=== PATIENT | female | born 1990 | race Caucasian/White ===

== ENCOUNTER 2019-06-09 23:17 | Emergency (ER) | payer OTHER ==
[2019-06-09 23:29] VITALS: TEMP 97.8
[2019-06-09] MEDS ORDERED: KETOROLAC 30 MG/ML 1 ML VIAL IVP STA (23:44)
[2019-06-09] MEDS ORDERED: SODIUM CHLORIDE 0.9% 1,000 ML IV STA (23:44)
[2019-06-09] MEDS ORDERED: ONDANSETRON 4 MG/2 ML VIAL IVP STA (23:44)
[2019-06-09] MEDS ORDERED: HYDROmorphone 0.5 MG/0.5 ML SYRINGE IVP STA (23:44)
[2019-06-10 01:21] LABS: Basophils # (A) 0.1 k/uL (0-0.2); Basophils % (A) 1 %; Eosinophils # (A) 0.2 k/uL (0-0.7); Eosinophils % (A) 2 %; HCT 38.6 % (34.0-46.0); HGB 12.9 gm/dL (11.4-16.0); Lymphocytes # (A) 2.5 k/uL (1.0-4.8); Lymphocytes % (A) 25 %; MCH 29.6 pg (25.0-35.0); MCHC 33.4 g/dL (31.0-37.0); MCV 88.7 fL (80.0-100.0); Mean Platelet Volume 6.6; Monocytes # (A) 0.5 k/uL (0-1.0); Monocytes % (A) 5 %; Neutrophils # (A) 6.9 k/uL (1.3-7.7); Neutrophils % (A) 67 %; Platelet Count 373 k/uL (150-450); RBC 4.35 m/uL (3.80-5.40); RDW 12.5 % (11.5-15.5); WBC 10.3 k/uL (3.8-10.6)
[2019-06-10 01:29] LABS: ALT 12 U/L (9-52); AST 11 U/L (14-36); African American GFR (CKD) >90 (>60 ml/min/1.73 sqM); Albumin 4.1 g/dL (3.5-5.0); Alkaline Phosphatase 49 U/L (38-126); Amylase 57 U/L (30-110); Anion Gap 9 mmol/L; Blood Urea Nitrogen 10 mg/dL (7-17); Calcium 9.1 mg/dL (8.4-10.2); Carbon Dioxide 23 mmol/L (22-30); Chloride 107 mmol/L (98-107); Glucose 106 mg/dL (74-99); Potassium 4.2 mmol/L (3.5-5.1); Sodium 139 mmol/L (137-145); Total Bilirubin 0.4 mg/dL (0.2-1.3); Total Protein 6.8 g/dL (6.3-8.2)
[2019-06-10 01:37] LABS: Amorphous Sediment,Urine Occasional /hpf; Appearance,Urine Cloudy (Clear); Bacteria,Urine Occasional /hpf; Bilirubin,Urine Negative (Negative); Blood,Urine Moderate (Negative); Color,Urine Yellow; Glucose,Urine (UA) Negative (Negative); Ketones,Urine Negative (Negative); Leukocyte Esterase,Urine Negative (Negative); Mucus,Urine Few /hpf; Nitrite,Urine Negative (Negative); Protein,Urine Trace (Negative); RBC,Urine >182 /hpf (0-5); Specific Gravity,Urine 1.016 (1.001-1.035); Squamous Epithelial Cell,Urine 13 /hpf (0-4); Urobilinogen,Urine <2.0 mg/dL (<2.0); WBC,Urine 4 /hpf (0-5)
--- NOTE | 2019-06-10 01:58 | XR ---
INDICATION: Abdominal pain COMPARISON: None FINDINGS: AP upright views of the abdomen are submitted for interpretation. The bowel gas pattern is nonobstructive. There is no evidence of bowel distention or fluid levels. There is no evidence of free air. A few punctate calcifications in the right pelvis suggest phleboliths. Regional skeleton is intact. IMPRESSION: Nonobstructive bowel gas pattern.
[2019-06-10] MEDS ORDERED: HYDROmorphone 1 MG/ML 1 ML SYRINGE IVP STA (02:21)
[2019-06-10] MEDS ORDERED: ONDANSETRON 4 MG/2 ML VIAL IVP STA (02:21)
[2019-06-10] MEDS ORDERED: SODIUM CHLORIDE 0.9% 500 ML 500 ML IV ONE (02:21)
[2019-06-10] MEDS ORDERED: TAMSULOSIN 0.4 MG CAP.ER.24H PO STA (02:21)
[2019-06-10] MEDS ORDERED: PHENAZOPYRIDINE 200 MG TAB PO STA (02:28)
--- NOTE | 2019-06-10 02:31 | ED ---
Abdominal Pain HPI - General Chief Complaint: Abdominal Pain Stated Complaint: poss kidney stone Time Seen by Provider: 06/09/19 23:30 Source: patient Mode of arrival: wheelchair Limitations: no limitations - History of Present Illness Initial Comments: 29-year-old female patient presents to the emergency department today for evaluation of right flank pain and suprapubic pain. Patient states his been going on since around 3 PM this afternoon. Patient states that she has had urinary symptoms including dysuria and suprapubic cramping for the last week. Patient states that she does have history of kidney stones and this pain feels similar. States she is nauseated and has vomited several times since onset of pain today. She denies any fever or chills. Denies any obvious hematuria. States she was having some issues with urinary retention this evening. Patient states she's had tubal ligation in the past and denies chance of . Patient denies any recent rash, shortness breath, chest pain, diarrhea, constipation, numbness, tingling, dizziness, weakness, headache, visual changes, or any other complaints. - Related Data Previous Rx's Medication Instructions Recorded Amoxicillin 500 mg PO Q12HR 7 Days cap 09/12/16 HYDROcodone/APAP 5-325MG [[place] 1 tab PO Q6HR #16 tab 09/12/16 5-325] Ondansetron Odt [Zofran Odt] 4 mg PO Q12HR 8 Days tab 09/12/16 Hydrocodone/Acetaminophen [[place] 1 tab PO Q6HR PRN #12 tab 06/10/19 5-325] Ibuprofen [Motrin] 600 mg PO Q8HR PRN #30 tab 06/10/19 Ondansetron [Zofran ODT] 4 mg PO Q8HR PRN #10 tab 06/10/19 Tamsulosin HCl [Flomax] 0.4 mg PO DAILY #7 cap 06/10/19 Allergies Allergy/AdvReac Type Severity Reaction Status Date / Time latex Allergy Rash/Hives Verified 06/09/19 23:29 Review of Systems ROS Statement: Those systems with pertinent positive or pertinent negative responses have been documented in the HPI. ROS Other: All systems not noted in ROS Statement are negative. Past Medical History Additional Past Medical History / Comment(s): kidney stone, History of Any Multi-Drug Resistant Organisms: None Reported Past Surgical History: Tubal Ligation Additional Past Surgical History / Comment(s): lithotripsy, urethral stent, Past Psychological History: No Psychological Hx Reported Smoking Status: Current some day smoker Past Alcohol Use History: None Reported Past Drug Use History: None Reported General Exam Limitations: no limitations General appearance: alert, in no apparent distress, other (This is a well- developed, well-nourished adult female patient in mild distress related to pain. Vital signs upon presentation are temperature 97.8F, pulse 82, respirations 17, blood pressure 120/65, pulse ox 100% on room air.) Eye exam: Present: normal appearance, PERRL, EOMI. Absent: scleral icterus, conjunctival injection, periorbital swelling ENT exam: Present: normal exam, normal oropharynx, mucous membranes moist Respiratory exam: Present: normal lung sounds bilaterally. Absent: respiratory distress, wheezes, rales, rhonchi, stridor Cardiovascular Exam: Present: regular rate, normal rhythm, normal heart sounds. Absent: systolic murmur, diastolic murmur, rubs, gallop, clicks GI/Abdominal exam: Present: soft, tenderness (Suprapubic tenderness), normal bowel sounds. Absent: distended, guarding, rebound, rigid Back exam: Present: normal inspection, CVA tenderness (R). Absent: CVA tenderness (L) Neurological exam: Present: alert, oriented X3, CN II-XII intact Psychiatric exam: Present: normal affect, normal mood Skin exam: Present: warm, dry, intact, normal color. Absent: rash Course Vital Signs 06/09/19 23:24 Temperature 97.8 F Pulse Rate 82 Respiratory 17 Rate Blood Pressure 120/65 O2 Sat by Pulse 100 Oximetry Medical Decision Making - Medical Decision Making 29-year-old female patient presented to the emergency department today for evaluation of right flank pain and suprapubic abdominal pain. Physical examination did reveal right CVA tenderness and mild suprapubic abdominal tenderness. Labs reviewed and revealed normal white blood cell, urinalysis showed a cloudy appearance with trace protein. Moderate blood, greater than 182 red blood cells, 13 squamous epithelial cells, occasional amorphous sediment, occasional bacteria, and few mucus. HCG negative. X-ray showed calcifications in the pelvis possible phleboliths. Patient does have history of kidney stone, symptoms and urine findings are consistent with kidney stone. She'll be discharged with prescriptions for pain medication, nausea control, and Flomax. She is instructed to follow-up with urologist for further evaluation as soon as possible. Return parameters were discussed in detail. She verbalizes understanding and agrees with this plan. - Lab Data Result diagrams: 06/10/19 00:47 06/10/19 00:47 Lab Results 06/10/19 06/10/19 06/10/19 Range/Units 00:41 00:41 00:47 WBC (3.8-10.6) k/uL RBC (3.80-5.40) m/uL Hgb (11.4-16.0) gm/dL Hct (34.0-46.0) % MCV (80.0-100.0) fL MCH (25.0-35.0) pg MCHC (31.0-37.0) g/dL RDW (11.5-15.5) % Plt Count (150-450) k/uL Neutrophils % % Lymphocytes % % Monocytes % % Eosinophils % % Basophils % % Neutrophils # (1.3-7.7) k/uL Lymphocytes # (1.0-4.8) k/uL Monocytes # (0-1.0) k/uL Eosinophils # (0-0.7) k/uL Basophils # (0-0.2) k/uL Sodium 139 (137-145) mmol/L Potassium 4.2 (3.5-5.1) mmol/L Chloride 107 (98-107) mmol/L Carbon Dioxide 23 (22-30) mmol/L Anion Gap 9 mmol/L BUN 10 (7-17) mg/dL Creatinine 0.60 (0.52-1.04) mg/dL Est GFR (CKD-EPI)AfAm >90 (>60 ml/min/1.73 sqM) Est GFR (CKD-EPI)NonAf >90 (>60 ml/min/1.73 sqM) Glucose 106 H (74-99) mg/dL Calcium 9.1 (8.4-10.2) mg/dL Total Bilirubin 0.4 (0.2-1.3) mg/dL AST 11 L (14-36) U/L ALT 12 (9-52) U/L Alkaline Phosphatase 49 (38-126) U/L Total Protein 6.8 (6.3-8.2) g/dL Albumin 4.1 (3.5-5.0) g/dL Amylase 57 (30-110) U/L Lipase 205 (23-300) U/L Urine Color Yellow Urine Appearance Cloudy H (Clear) Urine pH 6.0 (5.0-8.0) Ur Specific [place] 1.016 (1.001-1.035) Urine Protein Trace H (Negative) Urine Glucose (UA) Negative (Negative) Urine Ketones Negative (Negative) Urine Blood Moderate H (Negative) Urine Nitrite Negative (Negative) Urine Bilirubin Negative (Negative) Urine Urobilinogen <2.0 (<2.0) mg/dL Ur Leukocyte Esterase Negative (Negative) Urine RBC >182 H (0-5) /hpf Urine WBC 4 (0-5) /hpf Ur Squamous Epith Cells 13 H (0-4) /hpf Amorphous Sediment Occasional H (None) /hpf Urine Bacteria Occasional H (None) /hpf Urine Mucus Few H (None) /hpf Urine HCG, Qual Not Detected (Not Detectd) 06/10/19 Range/Units 00:47 WBC 10.3 (3.8-10.6) k/uL RBC 4.35 (3.80-5.40) m/uL Hgb 12.9 (11.4-16.0) gm/dL Hct 38.6 (34.0-46.0) % MCV 88.7 (80.0-100.0) fL MCH 29.6 (25.0-35.0) pg MCHC 33.4 (31.0-37.0) g/dL RDW 12.5 (11.5-15.5) % Plt Count 373 (150-450) k/uL Neutrophils % 67 % Lymphocytes % 25 % Monocytes % 5 % Eosinophils % 2 % Basophils % 1 % Neutrophils # 6.9 (1.3-7.7) k/uL Lymphocytes # 2.5 (1.0-4.8) k/uL Monocytes # 0.5 (0-1.0) k/uL Eosinophils # 0.2 (0-0.7) k/uL Basophils # 0.1 (0-0.2) k/uL Sodium (137-145) mmol/L Potassium (3.5-5.1) mmol/L Chloride (98-107) mmol/L Carbon Dioxide (22-30) mmol/L Anion Gap mmol/L BUN (7-17) mg/dL Creatinine (0.52-1.04) mg/dL Est GFR (CKD-EPI)AfAm (>60 ml/min/1.73 sqM) Est GFR (CKD-EPI)NonAf (>60 ml/min/1.73 sqM) Glucose (74-99) mg/dL Calcium (8.4-10.2) mg/dL Total Bilirubin (0.2-1.3) mg/dL AST (14-36) U/L ALT (9-52) U/L Alkaline Phosphatase (38-126) U/L Total Protein (6.3-8.2) g/dL Albumin (3.5-5.0) g/dL Amylase (30-110) U/L Lipase (23-300) U/L Urine Color Urine Appearance (Clear) Urine pH (5.0-8.0) Ur Specific [place] (1.001-1.035) Urine Protein (Negative) Urine Glucose (UA) (Negative) Urine Ketones (Negative) Urine Blood (Negative) Urine Nitrite (Negative) Urine Bilirubin (Negative) Urine Urobilinogen (<2.0) mg/dL Ur Leukocyte Esterase (Negative) Urine RBC (0-5) /hpf Urine WBC (0-5) /hpf Ur Squamous Epith Cells (0-4) /hpf Amorphous Sediment (None) /hpf Urine Bacteria (None) /hpf Urine Mucus (None) /hpf Urine HCG, Qual (Not Detectd) - Radiology Data Radiology results: report reviewed, image reviewed KUB x-ray of the abdomen is obtained. Report was reviewed in its entirety. Impression by Dr. Kline shows nonobstructive bowel gas pattern. Disposition Clinical Impression: Kidney stone Disposition: HOME SELF-CARE Condition: Good Instructions (If sedation given, give patient instructions): Kidney Stones (ED), How to Strain Your Urine (ED) Additional Instructions: Increase fluids, especially water. Take medications as directed. Follow-up with urologist for recheck as soon as possible. Return to the emergency department immediately for any new, worsening, or concerning symptoms. Prescriptions: Tamsulosin HCl [Flomax] 0.4 mg PO DAILY #7 cap Ibuprofen [Motrin] 600 mg PO Q8HR PRN #30 tab PRN Reason: Pain Hydrocodone/Acetaminophen [[place] 5-325] 1 tab PO Q6HR PRN #12 tab PRN Reason: Pain Ondansetron [Zofran ODT] 4 mg PO Q8HR PRN #10 tab PRN Reason: Nausea Is patient prescribed a controlled substance at d/c from ED?: Yes When asked, does pt state using other controlled substances?: No If prescribed controlled substance>3 days was MAPS reviewed?: Prescribed <3 Days If opioid is for acute pain is fill amount 7 days or less?: Yes If Rx opioid, was Start Talking consent form obtained?: Yes Referrals: Brittany Chamberlain MD [Primary Care Provider] - 1-2 days Onur Dexter MD [STAFF PHYSICIAN] - 1-2 days Time of Disposition: 03:21
[2019-06-10] MEDS ORDERED: ONDANSETRON 4 MG ODT STARTER PACK 2 TAB BTL PO STA (03:19)
[2019-06-10] MEDS ORDERED: ACET/COD 300 MG/30 MG STARTER PACK 6 TAB BTL PO STA (03:19)
[2019-06-10 04:19] VITALS: BP 122/91; PULSE 64; RESP 18
== END 2019-06-10 04:20 | disposition home or self-care (01) ==
LOC: EC 23:17
DX: N20.0 Calculus of kidney (principal); F17.200 Nicotine dependence, unspecified, uncomplicated; Z91.040 Latex allergy status; Z96.0 Presence of urogenital implants; Z98.51 Tubal ligation status; Z98.890 Other specified postprocedural states
CPT/HCPCS: 36415; 80053; 82150; 83690; 85025; 81001; 81025; 74018; 99284; 96374; 96375 ×2; 96376 ×2; 96361 ×2; J2405; J1885; J1170 ×2; S0119

== ENCOUNTER → 2019-08-13 | Outpatient (CLI) | payer OTHER ==
--- NOTE | 2019-08-13 12:11 | XR ---
EXAMINATION TYPE: XR abdomen 1V DATE OF EXAM: 08/13/2019 COMPARISON: 06/10/2019 HISTORY: Flank pain and history of kidney stones TECHNIQUE: One view abdominal series FINDINGS: The osseous structures are intact. The bowel gas pattern is nonspecific. No definite suspicious calc ifications visualized overlying the kidneys. Tiny calcifications in the right hemipelvis are noted an d too small to characterize. IMPRESSION: 1. Nonspecific abdomen. No definite renal calculi. There are punctate calcifications along the right pelvic sidewall which are too small to characterize. Correlate with noncontrast CT as clinically war ranted.
== END | disposition home or self-care (01) ==
LOC: RADXRMAIN 11:55
PROVIDERS: ATTEND Urology
DX: N28.89 Other specified disorders of kidney and ureter (principal)
CPT/HCPCS: 74018

== ENCOUNTER 2019-08-17 10:57 | Day surgery (SDC) | payer OTHER ==
[2019-08-15 11:01] VITALS: BMI 19.9
--- NOTE | 2019-08-16 22:14 | P.HPIHPCON ---
History of Present Illness H&P Date: 08/17/19 Chief Complaint: bilateral flank pain Ms Reese is 29 yo female with intractable flank pain that is associated with N/V. She underwent a CT which showed 3mm renal stones on the left and possible 2mm ureteral stone vs Phlebilith on the right. Patient was having severe pain on presentation. We discussed with her given the finding of bilateral stones on CT we will proceed with cystoscopy bilateral retrograde pyelogram, possible ureteroscopy with holmium laser lithotripsy and stone basketting. I discussed with her the risk on surgery including bleeding, infection and injury to ureter. I also discussed risk of anesthesia with her. I have explained the operation/procedure to the patient, including the risks, benefits, side effects, alternative therapies (including not receiving the proposed treatment or service), the likelihood of the patient achieving his/her goals, and potential recuperation problems for the procedure/sedation/analgesia, as well as any blood products, if indicated. I also explained to the patient the risks, benefits and side effects of the alternatives, as well as the risks related to not receiving the proposed procedure, care, treatment, or services. Consent for Procedure: I have explained the operation/procedure to the patient, including the risks, benefits, side effects, alternative therapies (including not receiving the proposed treatment or service), the likelihood of the patient achieving his/her goals, and potential recuperation problems for the procedure/sedation/analgesia, as well as any blood products, if indicated. I also explained to the patient the risks, benefits and side effects of the alternatives, as well as the risks related to not receiving the proposed procedure, care, treatment, or services. 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 History of Any Multi-Drug Resistant Organisms: None Reported Past Surgical History: Tubal Ligation Additional Past Surgical History / Comment(s): lithotripsy, urethral stent,cystoscopy Past Anesthesia/Blood Transfusion Reactions: No Reported Reaction Additional Past Anesthesia/Blood Transfusion Reaction / Comment(s): pt states has a'small plural" small when given epidural Smoking Status: Current some day smoker - Past Family History Mother Family Medical History: No Reported History Medications and Allergies Home Medications Medication Instructions Recorded Confirmed Type Hydrocodone/Acetaminophen [[place] 1 tab PO Q8H 10/30/19 10/30/19 History 5-325] Mirabegron [Myrbetriq] 25 mg PO DAILY 08/15/19 08/15/19 History Allergies Allergy/AdvReac Type Severity Reaction Status Date / Time latex Allergy Rash/Hives Verified 08/15/19 10:46 Surgical - Exam - General well developed, well nourished, moderate distress, severe pain - Respiratory normal expansion, normal respiratory effort - Abdomen Abdomen: soft, tender (bilateral flank) - Psychiatric oriented to time, oriented to person, oriented to place Assessment and Plan Assessment: 29 yo female with hx of recurrent kidney stones. She underwent a CT which showed 3mm renal stones on the left and possible 2mm ureteral stone vs Phlebilith on the right. Patient was having severe pain on presentation. We discussed with her given the finding of bilateral stones on CT we will proceed with cystoscopy bilateral retrograde pyelogram, possible ureteroscopy with holmium laser lithotripsy, stone basketting and stent placement
[~2019-08-17 10:57] MED LIST: DEXAMETHASONE SOD PHOSPHATE 10 MG/ML 1 ML VIAL IV ONE; HYDROmorphone 0.5 MG/0.5 ML SYRINGE IVP PRN; LACTATED RINGERS 1,000 ML IV SCH; ONDANSETRON 4 MG/2 ML VIAL IVP ONE; SCOPOLAMINE 1.5MG/72HR PATCH TRANSDERM ONE
--- NOTE | 2019-08-17 11:22 | XR ---
EXAMINATION TYPE: XR KUB DATE OF EXAM: 08/17/2019 COMPARISON: 1020 HISTORY: Kidney stones TECHNIQUE: One view abdominal series FINDINGS: The osseous structures are intact. The bowel gas pattern is nonspecific. Stents retained fecal debri s throughout the colon correlate for constipation. Within the visualized abdomen no suspicious calcif ications. Pelvic calcifications are stable from prior IMPRESSION: 1. Nonspecific abdomen. No definite renal calculi seen. Correlate for constipation. 2. Stable nonspecific punctate right hemipelvic calcifications.
[2019-08-17] MEDS ORDERED: LIDOCAINE 1% 20 ML VIAL (10MG/ML) FOR IV START INTRADERMA ONE (11:50)
[2019-08-17] MEDS: MIDAZOLAM 2 MG/2 ML VIAL IV PRN ×2 (13:25→13:30)
[2019-08-17] MEDS ORDERED: PROPOFOL 10 MG/ML 20 ML VIAL IV ONE (13:34)
[2019-08-17] MEDS ORDERED: diphenhydrAMINE 50 MG/ML 1 ML VIAL ONE (13:34)
[2019-08-17] MEDS ORDERED: MIDAZOLAM 2 MG/2 ML VIAL ONE (13:34)
[2019-08-17] MEDS ORDERED: KETOROLAC 30 MG/ML 1 ML VIAL ONE (13:34)
[2019-08-17] MEDS ORDERED: fentaNYL (PF) 50 MCG/ML 2 ML AMP ONE (13:34)
[2019-08-17] MEDS ORDERED: LIDOCAINE 1% INJ 10MG/ML (20 ML MDV) ONE (13:34)
[2019-08-17] MEDS ORDERED: LACTATED RINGERS 1,000 ML IV ONE (14:08)
[2019-08-17] MEDS ORDERED: IOHEXOL 350 MG/ML 50 ML in EMPTY BAG 1 BAG IRRIGATION ONE (14:09)
[2019-08-17 15:17] VITALS: TEMP 97.4
[2019-08-17 15:39] VITALS: RESP 16
[2019-08-17] MEDS ORDERED: fentaNYL (PF) 50 MCG/ML 2 ML AMP IV ONE (16:37)
[2019-08-17] MEDS ORDERED: HYDROcodone/APAP 5-325MG 1 EACH TAB PO ONE (16:48)
[2019-08-17] MEDS ORDERED: HYDROmorphone 1 MG/ML 1 ML SYRINGE IVP ONE (17:30)
[2019-08-17] MEDS ORDERED: MIDAZOLAM 2 MG/2 ML VIAL IV ONE (18:32)
[2019-08-17 18:57] VITALS: BP 107/88; PULSE 99
--- NOTE | 2019-08-18 15:08 | P.OP ---
Date of Procedure: 08/17/19 Preoperative Diagnosis: renal calculi Postoperative Diagnosis: right-sided hydronephrosis Procedure(s) Performed: Cystoscopy, bilateral retrograde pyelogram, ureteroscopy, and bilateral stent placement Implants: 4.8-[place] by 26 cm stents bilaterally Estimated Blood Loss (ml): 10 Indications for Procedure: Ms Reese is 29 yo female with intractable flank pain that is associated with N/V. She underwent a CT which showed 3mm renal stones on the left and possible 2mm ureteral stone vs Phlebilith on the right. Patient was having severe pain on presentation. We discussed with her given the finding of bilateral stones on CT we will proceed with cystoscopy bilateral retrograde pyelogram, possible ureteroscopy with holmium laser lithotripsy and stone basketting. I discussed with her the risk on surgery including bleeding, infection and injury to ureter. I also discussed risk of anesthesia with her. I also discussed that her pain might not resolve given that the lack of hydronephrosis on CT I have explained the operation/procedure to the patient, including the risks, benefits, side effects, alternative therapies (including not receiving the proposed treatment or service), the likelihood of the patient achieving his/her goals, and potential recuperation problems for the procedure/sedation/analgesia, as well as any blood products, if indicated. I also explained to the patient the risks, benefits and side effects of the alternatives, as well as the risks related to not receiving the proposed procedure, care, treatment, or services. Operative Findings: Right sided hyronephrosis, high insertion of right ureter, narrowing along the right UPJ. No stones visualized bilaterally Description of Procedure: The patient was taken to the operating room general anesthesia was induced. She was prepped and draped in sterile fashion and placed in dorsal lithotomy position. Cystoscope fitted with a 22 sheath was inserted per urethra cystoscopy was performed which showed no abnormality was in the bladder. Attention was first carried to the left ureteral orifice which was intubated with a 6-[place] open-end catheter and retrograde pyelogram was performed, no filling defect or hydronephrosis. A 0.035 motion wire was advanced through the catheter and the catheter was removed with the wire in place. Next a semirigid ureteroscope was inserted per urethra and advanced up the left ureteral orifice ureteroscopy was performed which showed no stones along the ureter but of note the patient did have a small caliber ureter. pullback ureteroscopy was performed showed no injury to the ureter or any residual stones. Next a's 4.8 x 26 cm stent was advanced over the wire and into the renal pelvis the proximal curl was visualized under fluoroscopy and the distal curl was visualized using's cystoscope. attention was then carried to the right side the right ureteral orifice was in tubated with a 6-[place] open-ended catheter. Retrograde pyelogram was performed which showed a high insertion of the ureter at the renal pelvis and moderate hydronephrosis on the right side. Finding were consistent with UPJO secondary to high inserting ureter. There was no filling defects identified. Next a semirigid ureteroscope was advanced up the ureter and in an ureteroscopy was performed which showed no stones along the ureter and the ureter was within normal limits. The ureteroscope was withdrawn and a 0.035 motion wire was advanced through the ureteroscope and up into the renal pelvis. Next a flexible ureteroscope was advanced over the wire and of note the UPJ was a narrow caliber but I was able to advance the ureteroscope through the UPJ without difficulties. Renoscopy was performed which showed no stones but visualization was poor so decision was made to attempt ureteroscopy using the access sheath. Next a 0.035 motion wire was advanced through the ureteroscope and the ureteroscope was withdrawn with the wire in place. Next a [id number] access usual advanced to the proximal ureter. The flexibile ureteroscope was inserted per access sheath and renoscopy was performed which showed no stones in the kidney. Pullback ureteroscopy was performed which showed no injury to the ureter any residual stones. Next a 4.8-[place] by 26 cm stent was passed over the wire and the proximal curl was visualized using fluoroscopy and distal curl was visualized using the cystoscope the bladder was emptied and the end of the case the patient tolerated the surgery well and was taken to PACU in stable condition
--- NOTE | 2019-08-19 17:36 | FL ---
EXAMINATION TYPE: FL urography retrograde DATE OF EXAM: 08/17/2019 FLUOROSCOPY Fluoroscopy time of 25 seconds was used during bilateral stent placement. 2 image/s document/s the p cali.
== END 2019-08-17 19:15 | disposition home or self-care (01) ==
LOC: OR 10:57
PROVIDERS: ATTEND Urology
DX: N13.30 Unspecified hydronephrosis (principal); N28.89 Other specified disorders of kidney and ureter; F17.200 Nicotine dependence, unspecified, uncomplicated; Z87.442 Personal history of urinary calculi; Z87.448 Personal history of other diseases of urinary system; Z98.51 Tubal ligation status; Z98.890 Other specified postprocedural states; Z79.891 Long term (current) use of opiate analgesic; Z79.899 Other long term (current) drug therapy; Z91.040 Latex allergy status
CPT/HCPCS: 52351; 52332; 74420; 74018; C2625; C1758; J2250; J1200; J1100; J0690; J2405; J2001; J3010; J1885; J1170 ×2; J2704; Q9967

== ENCOUNTER 2019-08-18 12:57 | Observation (INO) | payer OTHER ==
[2019-08-18] MEDS ORDERED: SODIUM CHLORIDE 0.9% 2,000 ML IV STA (13:11)
[2019-08-18] MEDS ORDERED: ONDANSETRON 4 MG/2 ML VIAL IVP STA (13:24)
[2019-08-18] MEDS ORDERED: KETOROLAC 30 MG/ML 1 ML VIAL IVP STA (13:24)
[2019-08-18] MEDS ORDERED: HYDROmorphone 1 MG/ML 1 ML SYRINGE IVP STA (13:24)
[2019-08-18 13:40] LABS: Basophils % (A) 0 %; Eosinophils # (A) 0.1 k/uL (0-0.7); Eosinophils % (A) 1 %; HCT 38.6 % (34.0-46.0); HGB 12.9 gm/dL (11.4-16.0); Lymphocytes # (A) 3.3 k/uL (1.0-4.8); Lymphocytes % (A) 30 %; MCH 30.4 pg (25.0-35.0); MCHC 33.5 g/dL (31.0-37.0); MCV 90.9 fL (80.0-100.0); Mean Platelet Volume 5.9; Monocytes # (A) 0.4 k/uL (0-1.0); Monocytes % (A) 4 %; Neutrophils % (A) 64 %; Platelet Count 364 k/uL (150-450); RBC 4.25 m/uL (3.80-5.40); RDW 12.6 % (11.5-15.5)
[2019-08-18 13:43] LABS: Appearance,Urine Turbid (Clear); Bilirubin,Urine Negative (Negative); Blood,Urine Large (Negative); Color,Urine Dark Red; Glucose,Urine (UA) Trace (Negative); Ketones,Urine Negative (Negative); Leukocyte Esterase,Urine Moderate (Negative); Nitrite,Urine Negative (Negative); PH, Urine 6.5 (5.0-8.0); Protein,Urine 3+ (Negative); RBC,Urine >182 /hpf (0-5); Urobilinogen,Urine <2.0 mg/dL (<2.0)
[2019-08-18 13:51] LABS: Calcium 8.8 mg/dL (8.4-10.2); Total Bilirubin 0.5 mg/dL (0.2-1.3); Total Protein 6.9 g/dL (6.3-8.2)
[2019-08-18 13:59] LABS: Potassium 3.8 mmol/L (3.5-5.1)
--- NOTE | 2019-08-18 14:07 | XR ---
EXAMINATION TYPE: XR KUB DATE OF EXAM: 08/18/2019 COMPARISON: 08/17/2019 HISTORY: Lithotripsy TECHNIQUE: 2 views upright FINDINGS: There are bilateral ureteral stents. Bowel gas pattern is normal. There is no sign of intes tinal obstruction or pneumoperitoneum. Fecal pattern is normal. I see no pathologic calcifications ov er the kidneys and ureters. IMPRESSION: Nonacute abdomen.
[2019-08-18] MEDS ORDERED: PHENAZOPYRIDINE 200 MG TAB PO STA (14:34)
[2019-08-18] MEDS ORDERED: HYDROmorphone 0.5 MG/0.5 ML SYRINGE IVP STA ×2 (14:34→15:03)
--- NOTE | 2019-08-18 15:38 | ED ---
General Adult HPI - General Chief complaint: Recheck/Abnormal Lab/Rx Stated complaint: Hemorrhaging-post op Time Seen by Provider: 08/18/19 13:10 Source: patient, RN notes reviewed Mode of arrival: wheelchair Limitations: no limitations - History of Present Illness Initial comments: This a 29-year-old female presents emergency Department chief complaint uncontrolled pain after lithotripsy and stent placement. Patient states she had bilateral stent placement yesterday. Patient had lithotripsy done in addition. Patient has obstructive uropathy on her left and kidney stone the right. Patient states that she is having extreme hematuria. Patient states that she's been taking her pain meds as directed and states is not helping. She states she cannot tolerate the pain anymore she has meant to some nausea no vomiting currently denies fevers chills. - Related Data Home Medications Medication Instructions Recorded Confirmed Hydrocodone/Acetaminophen [[place] 1 tab PO Q8H 08/15/19 08/17/19 5-325] Mirabegron [Myrbetriq] 25 mg PO DAILY 08/15/19 08/17/19 Allergies Allergy/AdvReac Type Severity Reaction Status Date / Time latex Allergy Rash/Hives Verified 08/18/19 13:07 Review of Systems ROS Statement: Those systems with pertinent positive or pertinent negative responses have been documented in the HPI. ROS Other: All systems not noted in ROS Statement are negative. Past Medical History Additional Past Medical History / Comment(s): kidney stone, History of Any Multi-Drug Resistant Organisms: None Reported Past Surgical History: Tubal Ligation Additional Past Surgical History / Comment(s): lithotripsy, urethral stent, Past Psychological History: No Psychological Hx Reported Smoking Status: Current some day smoker Past Alcohol Use History: None Reported Past Drug Use History: None Reported General Exam General appearance: alert, in no apparent distress Head exam: Present: atraumatic, normocephalic, normal inspection Respiratory exam: Present: normal lung sounds bilaterally. Absent: respiratory distress, wheezes, rales, rhonchi, stridor Cardiovascular Exam: Present: regular rate, normal rhythm, normal heart sounds. Absent: systolic murmur, diastolic murmur, rubs, gallop, clicks GI/Abdominal exam: Present: soft, tenderness (Severe tenderness with palpation lower suprapubic region), normal bowel sounds. Absent: distended, guarding, rebound, rigid Back exam: Present: CVA tenderness (R), CVA tenderness (L) Neurological exam: Present: alert Skin exam: Present: warm, dry, intact, normal color. Absent: rash Course Vital Signs 08/18/19 08/18/19 13:03 15:04 Temperature 98.2 F Pulse Rate 87 91 Respiratory 18 18 Rate Blood Pressure 122/80 108/68 O2 Sat by Pulse 99 100 Oximetry Medical Decision Making - Medical Decision Making Patient's pain is uncontrolled this time we did discuss the case with on-call urology in which patient be admitted for pain control that he requests ultrasound of the kidney and bladder. - Lab Data Result diagrams: 08/18/19 13:25 08/18/19 13:25 Lab Results 08/18/19 08/18/19 08/18/19 Range/Units 13:25 13:25 13:25 WBC 11.0 H (3.8-10.6) k/uL RBC 4.25 (3.80-5.40) m/uL Hgb 12.9 (11.4-16.0) gm/dL Hct 38.6 (34.0-46.0) % MCV 90.9 (80.0-100.0) fL MCH 30.4 (25.0-35.0) pg MCHC 33.5 (31.0-37.0) g/dL RDW 12.6 (11.5-15.5) % Plt Count 364 (150-450) k/uL Neutrophils % 64 % Lymphocytes % 30 % Monocytes % 4 % Eosinophils % 1 % Basophils % 0 % Neutrophils # 7.0 (1.3-7.7) k/uL Lymphocytes # 3.3 (1.0-4.8) k/uL Monocytes # 0.4 (0-1.0) k/uL Eosinophils # 0.1 (0-0.7) k/uL Basophils # 0.0 (0-0.2) k/uL Sodium 142 (137-145) mmol/L Potassium 3.8 (3.5-5.1) mmol/L Chloride 110 H (98-107) mmol/L Carbon Dioxide 23 (22-30) mmol/L Anion Gap 9 mmol/L BUN 12 (7-17) mg/dL Creatinine 1.05 H (0.52-1.04) mg/dL Est GFR (CKD-EPI)AfAm 84 (>60 ml/min/1.73 sqM) Est GFR (CKD-EPI)NonAf 72 (>60 ml/min/1.73 sqM) Glucose 94 (74-99) mg/dL Calcium 8.8 (8.4-10.2) mg/dL Total Bilirubin 0.5 (0.2-1.3) mg/dL AST 13 L (14-36) U/L ALT 20 (9-52) U/L Alkaline Phosphatase 36 L (38-126) U/L Total Protein 6.9 (6.3-8.2) g/dL Albumin 4.0 (3.5-5.0) g/dL Lipase 22 L (23-300) U/L Urine Color Dark Red Urine Appearance Turbid H (Clear) Urine pH 6.5 (5.0-8.0) Ur Specific [place] 1.020 (1.001-1.035) Urine Protein 3+ H (Negative) Urine Glucose (UA) Trace H (Negative) Urine Ketones Negative (Negative) Urine Blood Large H (Negative) Urine Nitrite Negative (Negative) Urine Bilirubin Negative (Negative) Urine Urobilinogen <2.0 (<2.0) mg/dL Ur Leukocyte Esterase Moderate H (Negative) Urine RBC >182 H (0-5) /hpf Urine WBC 65 H (0-5) /hpf Disposition Clinical Impression: Hematuria, S/P ureteral stent placement, Intractable abdominal pain Disposition: ADMITTED IP TO THIS [facility] Condition: Fair Referrals: Brittany Chamberlain MD [Primary Care Provider] - 1-2 days
[2019-08-18] MEDS ORDERED: HYDROmorphone 0.5 MG/0.5 ML SYRINGE IVP PRN (15:56)
[2019-08-18] MEDS ORDERED: NALOXONE 0.4 MG/ML 1 ML VIAL IV PRN (15:56)
[2019-08-18] MEDS: SODIUM CHLORIDE 0.9% 1,000 ML IV SCH (16:06)
--- NOTE | 2019-08-18 16:34 | US ---
EXAMINATION TYPE: US kidneys/renal and bladder DATE OF EXAM: 08/18/2019 COMPARISON: CLINICAL HISTORY: pain. Bilateral renal stents since yesterday. Gross hematuria. Pain. Hx renal st ones. Suboptimal visualization due to patient movement from pain EXAM MEASUREMENTS: Right Kidney: 11.4 x 4.2 x 4.1 cm Left Kidney: 10.2 x 3.7 x 5.6 cm Right Kidney: Medial anechoic lesion at hilum = 1.1 x 0.7 cm. Left Kidney: No hydronephrosis or masses seen Bladder: distended. Stents visualized. Posterior hypoechoic lesion visualized surrounding stents - 3.1 x 2.6 x 1.8 cm Bilateral Jets not seen There is no evidence for hydronephrosis at this point in time. No nephrolithiasis is seen. No jil s are identified. The urinary bladder is anechoic. Bilateral ureteral jets are seen. IMPRESSION: There is a solid irregular mass in the posterior urinary bladder that measures 3 x 2 cm. No evidence of solid renal mass or obstruction. 1 cm right renal parapelvic cyst.
[2019-08-18] MEDS: HYDROmorphone 1 MG/ML 1 ML SYRINGE IVP PRN ×3 (17:05→23:20)
[2019-08-19] MEDS ORDERED: DIAZEPAM 5 MG/ML 2 ML INJ IVP PRN (01:28)
[2019-08-19] MEDS: DIAZEPAM 5 MG/ML 2 ML INJ IVP PRN ×3 (01:53→18:05)
[2019-08-19] MEDS: KETOROLAC 30 MG/ML 1 ML VIAL IVP SCH ×4 (01:57→18:05)
[2019-08-19] MEDS: SODIUM CHLORIDE 0.9% 1,000 ML IV SCH ×3 (02:02→22:55)
[2019-08-19] MEDS: HYDROcodone/APAP 10-325MG 1 EACH TAB PO PRN ×6 (02:06→22:53)
[2019-08-19 07:20] LABS: Basophils % (A) 0 %; Eosinophils # (A) 0.1 k/uL (0-0.7); Eosinophils % (A) 3 %; HCT 32.9 % (34.0-46.0); Lymphocytes # (A) 2.4 k/uL (1.0-4.8); Lymphocytes % (A) 46 %; MCH 31.5 pg (25.0-35.0); MCHC 33.5 g/dL (31.0-37.0); MCV 94.1 fL (80.0-100.0); Mean Platelet Volume 6.1; Monocytes # (A) 0.3 k/uL (0-1.0); Monocytes % (A) 5 %; Neutrophils # (A) 2.3 k/uL (1.3-7.7); Neutrophils % (A) 44 %; Platelet Count 275 k/uL (150-450); RDW 12.7 % (11.5-15.5); WBC 5.3 k/uL (3.8-10.6)
--- NOTE | 2019-08-19 14:04 | P.GSHP ---
History of Present Illness H&P Date: 08/19/19 Chief Complaint: Bilateral flank pain and bladder spasms Ms. Reese is 29 yo female that underwent bilateral ureteroscopy on 08/17/19 for renal calculi, it appeared that patient passed her stone, but there was evidence of right sided hydronephrosis secondary to UPJO. She presented overnight with complaint of intractable flank pain and severe bladder spasms. Of note patient had severe bilateral flank pain prior to the operation. In the ED she underwent RBUS which showed no hydronephrosis. On evaluation this am she is still complaining of flank pain with shooting pain down the kidney with voiding. She also complained of Nausea w/o vomiting. Denies any hematuria or dysuria. Pain is slightly improving with Valium - Constitutional Constitutional: Reports weakness, Denies chills, Denies fever - EENT Ears, nose, mouth and throat: Denies headache - Cardiovascular Cardiovascular: Denies chest pain, Denies dyspnea on exertion, Denies shortness of breath - Respiratory Respiratory: Denies cough, Denies wheezing - Gastrointestinal Gastrointestinal: Reports abdominal pain, Reports loss of appetite, Reports nausea - Genitourinary (Female) Genitourinary: Reports flank pain, Reports urgency - Genitourinary (Male) Genitourinary: Reports flank pain, Reports hematuria Past Medical History Additional Past Medical History / Comment(s): kidney stone, History of Any Multi-Drug Resistant Organisms: None Reported Past Surgical History: Tubal Ligation Additional Past Surgical History / Comment(s): lithotripsy, urethral stent, Past Psychological History: No Psychological Hx Reported Smoking Status: Current some day smoker Past Alcohol Use History: None Reported Past Drug Use History: None Reported Medications and Allergies Home Medications Medication Instructions Recorded Confirmed Type Hydrocodone/Acetaminophen [[place] 1 tab PO Q6H PRN 08/15/19 08/18/19 History 5-325] Mirabegron [Myrbetriq] 25 mg PO HS 08/15/19 08/18/19 History Ibuprofen [Motrin Ib] 800 mg PO Q6H PRN 08/18/19 08/18/19 History Allergies Allergy/AdvReac Type Severity Reaction Status Date / Time latex Allergy Rash/Hives Verified 08/18/19 16:38 Surgical - Exam Vital Signs Temp Pulse Resp BP Pulse Ox 98.2 F 87 18 122/80 99 08/18/19 13:03 08/18/19 13:03 08/18/19 13:03 08/18/19 13:03 08/18/19 13:03 - General well developed, moderate distress, moderate pain - ENT normal nares, normal mucosa, no hearing loss - Respiratory normal expansion, normal respiratory effort - Abdomen Abdomen: soft, tender (bilateral flank), no guarding, no rigid - Neurologic normal coordination, normal sensation - Musculoskeletal normal gait, normal posture - Psychiatric oriented to time, oriented to person, oriented to place Results - Labs 08/19/19 07:02 08/18/19 13:25 Abnormal Lab Results - Last 24 Hours (Table) 08/19/19 Range/Units 07:02 RBC 3.50 L (3.80-5.40) m/uL Hgb 11.0 L (11.4-16.0) gm/dL Hct 32.9 L (34.0-46.0) % Microbiology - Last 24 Hours (Table) 08/18/19 13:25 Urine Culture - Final Urine,Voided Assessment and Plan Assessment: 29 yo female S/P Bilateral Ureteroscopy on 08/17 with finding of right sided UPJO. Patient had sever bilateral flank prior to surgery, pain unimproved post operatively. Symptoms slightly improved with Valium. Plan: -Discussed with her that her symptoms are secondary to ureteral stent, I discussed with her and her that I recommend that stents stay in for 2 weeks to allow for decreased edema and healing post ureteroscopy. Discussed with her if removed early she is at increased risk of ureteral stricture. At this time she would like the stent removed and understood all the risk associated with that including ureteral stricture and renal loss. I discussed with her that if she develops hydronephrosis post stent removal then she will need Nephrostomy tube. Will plan on removing stent in the office next week -Continue Toradol and Valium for stent discomfort. -If pain improves will plan on discharging her home today. Time with Patient: Greater than 30
[2019-08-19] MEDS ORDERED: PHENAZOPYRIDINE 200 MG TAB PO STA (18:06)
[2019-08-19] MEDS: ONDANSETRON 4 MG/2 ML VIAL IVP PRN (19:11)
[2019-08-19 23:53] VITALS: RESP 18
[2019-08-20] MEDS: DIAZEPAM 5 MG/ML 2 ML INJ IVP PRN ×2 (00:32→08:31)
[2019-08-20] MEDS: KETOROLAC 30 MG/ML 1 ML VIAL IVP SCH ×2 (00:33→06:37)
[2019-08-20] MEDS: HYDROcodone/APAP 10-325MG 1 EACH TAB PO PRN ×3 (03:29→10:53)
[2019-08-20] MEDS: SODIUM CHLORIDE 0.9% 1,000 ML IV SCH (06:55)
[2019-08-20 07:47] VITALS: BP 113/72; PULSE 57; TEMP 98
[2019-08-20] MEDS: ONDANSETRON 4 MG/2 ML VIAL IVP PRN (08:30)
--- NOTE | 2019-08-20 10:34 | P.PN ---
Subjective Progress Note Date: 08/20/19 Principal diagnosis: Patient still having bladder spasms, but improved compared to yesterday. Still complains of Nausea, but able to tolerated liquids. Objective - Vital Signs Vital signs: Vital Signs Temp 98 F 08/20/19 07:47 Pulse 57 L 08/20/19 07:47 Resp 18 08/20/19 07:47 BP 113/72 08/20/19 07:47 Pulse Ox 99 08/20/19 07:47 Intake & Output 08/19/19 08/20/19 08/20/19 18:59 06:59 18:59 Intake Total 960 240 Balance 960 240 Intake: Oral 960 240 Other: Voiding Method Toilet Toilet # Voids 2 2 - Constitutional General appearance: Present: mild distress - Gastrointestinal General gastrointestinal: Present: soft, tenderness (bilateral flank ). Absent: rigid - Labs CBC & Chem 7: 08/19/19 07:02 08/18/19 13:25 Labs: Microbiology - Last 24 Hours (Table) 08/18/19 13:25 Urine Culture - Final Urine,Voided Assessment and Plan Assessment: 29 yo female S/P Bilateral Ureteroscopy on 08/17 with finding of right sided UPJO. Patient had severe bilateral flank prior to surgery, pain unimproved post operatively. Symptoms slightly improved with Valium. Plan: -Discussed with her that her symptoms are secondary to ureteral stent, I discussed with her and her that I recommend that stents stay in for 2 weeks to allow for decreased edema and healing post ureteroscopy. Discussed with her if removed early she is at increased risk of ureteral stricture. At this time she would like the stent removed and understood all the risk associated with that including ureteral stricture and renal loss. I discussed with her that if she develops hydronephrosis post stent removal then she will need Nephrostomy tube. Will plan on removing stent in the office next week -Continue Toradol and Valium for stent discomfort. -Discharge home today
--- NOTE | 2019-08-20 13:12 | P.DS ---
Providers Date of admission: 08/18/19 16:17 Expected date of discharge: 08/20/19 Attending physician: King James MD Primary care physician: Brittany Chamberlain [place] Course: Ms. 29 yo female S/P Bilateral Ureteroscopy on 08/17 with finding of right sided UPJO. Patient presented to the ED with bilateral flank pain and sever bladder spasms. She underwent RBUS which showed no hydronephrosis. Patient was admitted to observation for pain control. Her spasms eventually become more tolerable with valium. She was discharged with Valium 2mg to help with her spasms. I had a prolonged discussion with her and her to avoid valium and narcotic use at the same time due to the risk of respiratory failure. They both understood the risk. She will f/u on 08/24 for ureteral stent removal. Patient Condition at Discharge: Fair Plan - Discharge Summary Discharge Rx Participant: No New Discharge Prescriptions: No Action Mirabegron [Myrbetriq] 25 mg PO HS Hydrocodone/Acetaminophen [[place] 5-325] 1 tab PO Q6H PRN PRN Reason: Pain Ibuprofen [Motrin Ib] 800 mg PO Q6H PRN PRN Reason: Pain Discharge Medication List Hydrocodone/Acetaminophen [[place] 5-325] 1 tab PO Q6H PRN 08/15/19 [History] Mirabegron [Myrbetriq] 25 mg PO HS 08/15/19 [History] Ibuprofen [Motrin Ib] 800 mg PO Q6H PRN 08/18/19 [History] Follow up Appointment(s)/Referral(s): Brittany Chamberlain MD [Primary Care Provider] - 1-2 days King James MD [STAFF PHYSICIAN] - 08/24/19 9:00 am (appointment made for 08/24/2019 @ 9:00 am )
[2019-08-23] MEDS: HYDROmorphone 1 MG/ML 1 ML SYRINGE IVP PRN (01:39)
== END 2019-08-20 12:42 ==
LOC: EC 12:57 → 1SOBS 16:17
PROVIDERS: ADMIT Urology; ATTEND Urology
DX: T83.84XA Pain due to genitourinary prosthetic devices, implants and grafts, initial encounter (principal); N32.89 Other specified disorders of bladder; R31.9 Hematuria, unspecified; R11.0 Nausea; R10.9 Unspecified abdominal pain; F17.200 Nicotine dependence, unspecified, uncomplicated; Z79.899 Other long term (current) drug therapy; Z91.040 Latex allergy status; Z98.51 Tubal ligation status; Z87.442 Personal history of urinary calculi
CPT/HCPCS: 96361 ×3; 96375 ×2; 96376 ×4; 96374; 99285; 36415; 80053; 83690; 85025 ×2; 81001; 87086; 74018; 76770; G0378 ×3; J3360 ×2; J2405 ×3; J1885 ×3; J1170 ×2

== ENCOUNTER 2019-08-23 18:36 | Emergency (ER) | payer OTHER ==
[2019-08-23 18:44] VITALS: PULSE 79; RESP 20
[2019-08-23] MEDS ORDERED: HYDROmorphone 1 MG/ML 1 ML SYRINGE IVP STA ×2 (19:13→20:37)
[2019-08-23] MEDS ORDERED: KETOROLAC 30 MG/ML 1 ML VIAL IVP STA (19:22)
--- NOTE | 2019-08-23 19:37 | ED ---
General Adult HPI - General Chief complaint: Abdominal Pain Stated complaint: Post Op Pain Time Seen by Provider: 08/23/19 18:51 Source: patient, RN notes reviewed Mode of arrival: ambulatory Limitations: no limitations - History of Present Illness Initial comments: Asuncion is a 29-year-old female who presents for postop right sided abdominal and flank pain. Patient had a bilateral ureteroscopy with stent placement on August 17. She then presented to the emergency department on August 18 and was admitted for intractable pain and released on August 20. Patient states she is scheduled to have the stents removed tomorrow morning in the office with urology however pain is intolerable. Ultrasound was performed on August 18 that showed stents visualized. No evidence for hydronephrosis. There was a solitary irregular mass in the posterior urinary bladder without evidence of obstruction.Patient has no other complaints at this time including shortness of breath, chest pain, nausea or vomiting, headache, or visual changes. - Related Data Home Medications Medication Instructions Recorded Confirmed Hydrocodone/Acetaminophen [[place] 1 tab PO Q6H PRN 08/15/19 08/18/19 5-325] Mirabegron [Myrbetriq] 25 mg PO HS 08/15/19 08/18/19 Ibuprofen [Motrin Ib] 800 mg PO Q6H PRN 08/18/19 08/18/19 Previous Rx's Medication Instructions Recorded Diazepam [Valium] 5 mg PO ONCE #1 tab 08/23/19 HYDROcodone/APAP 5-325MG [[place] 1 tab PO Q6HR PRN #4 tab 08/23/19 5-325] Allergies Allergy/AdvReac Type Severity Reaction Status Date / Time latex Allergy Rash/Hives Verified 08/23/19 18:44 Review of Systems ROS Statement: Those systems with pertinent positive or pertinent negative responses have been documented in the HPI. ROS Other: All systems not noted in ROS Statement are negative. Past Medical History Additional Past Medical History / Comment(s): kidney stone, History of Any Multi-Drug Resistant Organisms: None Reported Past Surgical History: Tubal Ligation Additional Past Surgical History / Comment(s): lithotripsy, urethral stent, Past Psychological History: No Psychological Hx Reported Smoking Status: Current some day smoker Past Alcohol Use History: None Reported Past Drug Use History: None Reported General Exam Limitations: no limitations General appearance: alert, in no apparent distress Head exam: Present: atraumatic, normocephalic, normal inspection Eye exam: Present: normal appearance, PERRL, EOMI. Absent: scleral icterus, conjunctival injection, periorbital swelling ENT exam: Present: normal exam, mucous membranes moist Neck exam: Present: normal inspection, full ROM. Absent: tenderness, meningismus, lymphadenopathy Respiratory exam: Present: normal lung sounds bilaterally. Absent: respiratory distress, wheezes, rales, rhonchi, stridor Cardiovascular Exam: Present: regular rate, normal rhythm, normal heart sounds. Absent: systolic murmur, diastolic murmur, rubs, gallop, clicks GI/Abdominal exam: Present: soft, tenderness (mild generalized tenderness), normal bowel sounds. Absent: distended, guarding, rebound, rigid Neurological exam: Present: alert Psychiatric exam: Present: normal affect, normal mood Course Vital Signs 08/23/19 18:40 Temperature 98.4 F Pulse Rate 79 Respiratory 20 Rate Blood Pressure 116/69 O2 Sat by Pulse 99 Oximetry Medical Decision Making - Medical Decision Making CBC CMP unremarkable. Vitals are stable. Urinalysis shows 182 red blood cells. There are 132 white blood cells however this is likely due to the leukocytosis. Patient is afebrile without a white blood cell count. Patient is complaining that the pain medication did not help her pain. Dr. Cornejo discussed this case with Dr. Partida who recommends either discharging the patient so that she can attend her appointment at 8:30 AM tomorrow morning to have the stents removed or admitting her with the possibility of missing her appointment to remove the stents. He is unable to remove them in the hospital. I discussed these options with patient. Patient prefers to go home so that she can have the stents taken out her appointment. I did prescribe patient [place] as well as one Valium as she was given this for bladder spasms when admitted. I discussed she can take the Valium when she gets home but she has to wait 4-6 hours to take an [place] after the Valium. She can return if she has any worsening symptoms that she is aware of. Otherwise she will attend her appointment. - Lab Data Result diagrams: 08/23/19 19:24 08/23/19 19:24 Lab Results 08/23/19 08/23/19 08/23/19 Range/Units 19:24 19:24 19:31 WBC 6.8 (3.8-10.6) k/uL RBC 4.51 (3.80-5.40) m/uL Hgb 13.3 (11.4-16.0) gm/dL Hct 41.4 (34.0-46.0) % MCV 91.9 (80.0-100.0) fL MCH 29.4 (25.0-35.0) pg MCHC 32.0 (31.0-37.0) g/dL RDW 12.6 (11.5-15.5) % Plt Count 390 (150-450) k/uL Neutrophils % 64 % Lymphocytes % 24 % Monocytes % 4 % Eosinophils % 6 % Basophils % 1 % Neutrophils # 4.3 (1.3-7.7) k/uL Lymphocytes # 1.6 (1.0-4.8) k/uL Monocytes # 0.3 (0-1.0) k/uL Eosinophils # 0.4 (0-0.7) k/uL Basophils # 0.1 (0-0.2) k/uL Sodium 142 (137-145) mmol/L Potassium 4.4 (3.5-5.1) mmol/L Chloride 105 (98-107) mmol/L Carbon Dioxide 29 (22-30) mmol/L Anion Gap 8 mmol/L BUN 13 (7-17) mg/dL Creatinine 0.71 (0.52-1.04) mg/dL Est GFR (CKD-EPI)AfAm >90 (>60 ml/min/1.73 sqM) Est GFR (CKD-EPI)NonAf >90 (>60 ml/min/1.73 sqM) Glucose 109 H (74-99) mg/dL Calcium 9.4 (8.4-10.2) mg/dL Total Bilirubin 0.2 (0.2-1.3) mg/dL AST 16 (14-36) U/L ALT 11 (9-52) U/L Alkaline Phosphatase 47 (38-126) U/L Total Protein 6.9 (6.3-8.2) g/dL Albumin 4.1 (3.5-5.0) g/dL Urine Color Urine Appearance (Clear) Urine pH (5.0-8.0) Ur Specific [place] (1.001-1.035) Urine Protein (Negative) Urine Glucose (UA) (Negative) Urine Ketones (Negative) Urine Blood (Negative) Urine Nitrite (Negative) Urine Bilirubin (Negative) Urine Urobilinogen (<2.0) mg/dL Ur Leukocyte Esterase (Negative) Urine RBC (0-5) /hpf Urine WBC (0-5) /hpf Ur Squamous Epith Cells (0-4) /hpf Urine HCG, Qual Not Detected (Not Detectd) 08/23/19 Range/Units 19:31 WBC (3.8-10.6) k/uL RBC (3.80-5.40) m/uL Hgb (11.4-16.0) gm/dL Hct (34.0-46.0) % MCV (80.0-100.0) fL MCH (25.0-35.0) pg MCHC (31.0-37.0) g/dL RDW (11.5-15.5) % Plt Count (150-450) k/uL Neutrophils % % Lymphocytes % % Monocytes % % Eosinophils % % Basophils % % Neutrophils # (1.3-7.7) k/uL Lymphocytes # (1.0-4.8) k/uL Monocytes # (0-1.0) k/uL Eosinophils # (0-0.7) k/uL Basophils # (0-0.2) k/uL Sodium (137-145) mmol/L Potassium (3.5-5.1) mmol/L Chloride (98-107) mmol/L Carbon Dioxide (22-30) mmol/L Anion Gap mmol/L BUN (7-17) mg/dL Creatinine (0.52-1.04) mg/dL Est GFR (CKD-EPI)AfAm (>60 ml/min/1.73 sqM) Est GFR (CKD-EPI)NonAf (>60 ml/min/1.73 sqM) Glucose (74-99) mg/dL Calcium (8.4-10.2) mg/dL Total Bilirubin (0.2-1.3) mg/dL AST (14-36) U/L ALT (9-52) U/L Alkaline Phosphatase (38-126) U/L Total Protein (6.3-8.2) g/dL Albumin (3.5-5.0) g/dL Urine Color Light Red Urine Appearance Turbid H (Clear) Urine pH 7.5 (5.0-8.0) Ur Specific [place] 1.016 (1.001-1.035) Urine Protein 2+ H (Negative) Urine Glucose (UA) Negative (Negative) Urine Ketones Negative (Negative) Urine Blood Negative (Negative) Urine Nitrite Negative (Negative) Urine Bilirubin 1+ H (Negative) Urine Urobilinogen 2.0 (<2.0) mg/dL Ur Leukocyte Esterase Negative (Negative) Urine RBC >182 H (0-5) /hpf Urine WBC 132 H (0-5) /hpf Ur Squamous Epith Cells 12 H (0-4) /hpf Urine HCG, Qual (Not Detectd) Disposition Clinical Impression: S/P ureteral stent placement, Flank pain Disposition: HOME SELF-CARE Condition: Good Instructions (If sedation given, give patient instructions): Flank Pain (ED) Additional Instructions: Please take Valium when you get home from pharmacy. Do not take [place] until 4-6 hours after taking Valium. Attend your appointment at 8:30 AM for stent removal. If you have any worsening symptoms throughout the night then return to the emergency department. Prescriptions: HYDROcodone/APAP 5-325MG [[place] 5-325] 1 tab PO Q6HR PRN #4 tab PRN Reason: Pain Diazepam [Valium] 5 mg PO ONCE #1 tab Is patient prescribed a controlled substance at d/c from ED?: Yes When asked, does pt state using other controlled substances?: No If prescribed controlled substance>3 days was MAPS reviewed?: Prescribed <3 Days If opioid is for acute pain is fill amount 7 days or less?: Yes If Rx opioid, was Start Talking consent form obtained?: Yes Referrals: Brittany Chamberlain MD [Primary Care Provider] - 1-2 days Shaq Feliz MD [STAFF PHYSICIAN] - 1-2 days Time of Disposition: 20:39
[2019-08-23 19:44] LABS: Appearance,Urine Turbid (Clear); Bilirubin,Urine 1+ (Negative); Blood,Urine Negative (Negative); Color,Urine Light Red; Glucose,Urine (UA) Negative (Negative); Ketones,Urine Negative (Negative); Leukocyte Esterase,Urine Negative (Negative); Nitrite,Urine Negative (Negative); PH, Urine 7.5 (5.0-8.0); Protein,Urine 2+ (Negative); RBC,Urine >182 /hpf (0-5); Specific Gravity,Urine 1.016 (1.001-1.035); Squamous Epithelial Cell,Urine 12 /hpf (0-4); WBC,Urine 132 /hpf (0-5)
[2019-08-23 19:54] LABS: Basophils # (A) 0.1 k/uL (0-0.2); Basophils % (A) 1 %; Eosinophils # (A) 0.4 k/uL (0-0.7); Eosinophils % (A) 6 %; HCT 41.4 % (34.0-46.0); HGB 13.3 gm/dL (11.4-16.0); Lymphocytes # (A) 1.6 k/uL (1.0-4.8); Lymphocytes % (A) 24 %; MCH 29.4 pg (25.0-35.0); MCV 91.9 fL (80.0-100.0); Mean Platelet Volume 6.3; Monocytes # (A) 0.3 k/uL (0-1.0); Monocytes % (A) 4 %; Neutrophils # (A) 4.3 k/uL (1.3-7.7); Neutrophils % (A) 64 %; Platelet Count 390 k/uL (150-450); RBC 4.51 m/uL (3.80-5.40); RDW 12.6 % (11.5-15.5); WBC 6.8 k/uL (3.8-10.6)
[2019-08-23 19:57] LABS: ALT 11 U/L (9-52); AST 16 U/L (14-36); African American GFR (CKD) >90 (>60 ml/min/1.73 sqM); Albumin 4.1 g/dL (3.5-5.0); Alkaline Phosphatase 47 U/L (38-126); Anion Gap 8 mmol/L; Blood Urea Nitrogen 13 mg/dL (7-17); Calcium 9.4 mg/dL (8.4-10.2); Carbon Dioxide 29 mmol/L (22-30); Chloride 105 mmol/L (98-107); Glucose 109 mg/dL (74-99); Potassium 4.4 mmol/L (3.5-5.1); Sodium 142 mmol/L (137-145); Total Bilirubin 0.2 mg/dL (0.2-1.3); Total Protein 6.9 g/dL (6.3-8.2)
[2019-08-23 20:44] VITALS: BP 123/98; TEMP 97.8
== END 2019-08-23 20:54 | disposition home or self-care (01) ==
LOC: EC 18:36
DX: R10.9 Unspecified abdominal pain (principal); G89.18 Other acute postprocedural pain; Z98.890 Other specified postprocedural states; Z32.02 Encounter for pregnancy test, result negative; F17.200 Nicotine dependence, unspecified, uncomplicated; Z91.040 Latex allergy status; Z87.442 Personal history of urinary calculi
CPT/HCPCS: 36415; 80053; 85025; 81001; 81025; 87086; 99284; 96374; 96375; 96376; J1885; J1170